=== PATIENT | male | born 1990 | race Caucasian/White ===

== ENCOUNTER 2021-07-19 13:34 | Emergency (ER) | payer OTHER, SELFPAY ==
--- NOTE | ~2021-07-19 | XR_ITS ---
XR chest 2V DATE: 07/19/2021 14:24 INDICATION: Chest pain TECHNIQUE: PA and lateral views COMPARISON: None FINDINGS: There is moderate bilateral hyperinflation. No pulmonary infiltrate or consolidation, pleur al effusion or pulmonary vascular congestion or pneumothorax is detected. No hilar or mediastinal enl argement. Normal heart size. Diffuse osteopenia. IMPRESSION: Moderate hyperinflation; no active pulmonary disease Osteopenia Reviewed, dictated and finalized at location A. TING DEPARTMENT SUPERVISOR
--- NOTE | 2021-07-19 13:39 | ECG_ITS ---
Measurements Intervals [place] Rate: 104 P: 53 OK: 166 QRS: 15 QRSD: 97 T: 62 QT: 330 QTc: 435 Interpretive Statements SINUS TACHYCARDIA INCOMPLETE RIGHT BUNDLE BRANCH BLOCK BASELINE ARTIFACT- II, III, V2-V3 BORDERLINE ECG Electronically Signed On 07-19-2021 16:12:15 SNOW BLOWER by Reji Baca D.O.
[2021-07-19 14:05] VITALS: BP 158/93; PULSE 93; RESP 16; TEMP 36.9; O2SAT 99
[2021-07-19 14:21] LABS: Basophils Absolute Auto 0.1 K/mm3 (0.0-0.1); Basophils Percent Auto 0.9 % (0.2-1.2); Eosinophils Absolute Auto 0.1 K/mm3 (0-0.3); Eosinophils Percent Auto 1.4 % (0-4.4); Hematocrit 42.8 % (42.0-52.0); Hemoglobin 15.4 g/dL (14.0-18.0); Immature Granulocyte Absolute 0.02 K/mm3 (0.00-0.031); Immature Granulocyte Percent A 0.3 % (0-0.5); Lymphocytes Absolute Auto 2.04 K/mm3 (0.9-3.2); Lymphocytes Percent Auto 34.9 % (18.3-44.2); Mean Corpuscular Hemoglobin 31.7 pg (26-34); Mean Corpuscular Volume 88.1 fl (80-100); Mean Platelet Volume 9.7 fl (7.4-10.4); Monocytes Absolute Auto 0.5 K/mm3 (0.1-0.6); Monocytes Percent Auto 7.7 % (2.6-8.5); Neutrophils Absolute Auto 3.2 K/mm3 (1.3-6.7); Neutrophils Percent Auto 54.8 % (45.5-73.1); Platelet Count Result 260 k/mm3 (150-375); Red Blood Count 4.86 M/mm3 (4.6-6.20); Red Cell Distribution Width 11.9 % (11.5-14.5); White Blood Count 5.8 K/mm3 (4.5-10.0)
[2021-07-19 14:32] LABS: Alanine Aminotransferase 62 U/L (4-50); Albumin Level 5.1 g/dL (3.5-5.1); Alkaline Phosphatase 67 U/L (38-126); Anion Gap 6 mmol/L (8-16); Aspartate Amino Transferase 38 U/L (17-59); Bilirubin,Total 0.9 mg/dL (0.2-1.3); Blood Urea Nitrogen 12 mg/dL (9-20); Carbon Dioxide 28 mmol/L (22-30); Chloride 104 mmol/L (98-107); Estimated CRCL calculation 89 ml/min; Estimated Glomerular Filt Rate > 60; Glucose 123 mg/dL (65-110); Lipase 96 U/L (23-300); Potassium 3.9 mmol/L (3.4-5.0); Sodium 138 mmol/L (137-145)
[2021-07-19 14:35] LABS: Prothrombin Time 13.3 Seconds (11.1-14.7)
[2021-07-19 14:43] LABS: Troponin I < 0.012 ng/mL (0.000-0.034)
--- NOTE | 2021-07-19 15:46 | ED.ARRPALP ---
HPI - Arrhythmia/Palpitations General Chief Complaint: Arrhythmia/Palpitations Stated Complaint: Heart palpitations Time Seen by Provider: 07/19/21 14:25 Source: patient and RN notes reviewed Mode of arrival: ambulatory Limitations: no limitations History of Present Illness HPI narrative: This is a 30 year old male with history of anxiety who presents for evaluation of anxiety. Patient states he was started on Buspirone and Seroquel 1 week ago for insomnia and anxiety. He presented to ER because he is having intermittent episodes of heart racing, palpitations , anxiousness. He reports his watch reports his heart rate is above 120 at times. He has intermittent chest pain. He reports constant anxiety attack for past 16 hours . He denies cough, nausea, vomiting, fever, chills. He drinks alcohol intermittently. He reports his symptoms were worse with drinking coffee a few days ago. Related Data Allergies Allergy/AdvReac Type Severity Reaction Status Date / Time No Known Allergies Allergy Verified 07/19/21 14:42 Review of Systems Review of Systems: All systems reviewed & are unremarkable except as noted in HPI and below PMFSH Past Medical History Medical History (Updated 07/19/21 @ 17:26 by Johanna Herrmann MD) Chronic insomnia GIOVANNY (generalized anxiety disorder) Surgical History Surgical History Hx of tonsillectomy Family History Family History Grandparent Diabetes mellitus Social History Social History (Updated 07/11/21 @ 09:35 by Ca Ramírez) Social History: Smoking status: Never smoker Second hand tobacco smoke exposure: No Alcohol intake: current Drinks per week: 3 Substance use: never Substance use type: does not use Gender identity (if verbalized by the patient): Male Sexual Orientation (if Verbalized by the Patient): Straight or Heterosexual Exam Const: General: no acute distress and alert Orientation/consciousness: patient oriented x3 Eyes: EOM: EOMs intact bilaterally Chest: Chest palpation & inspection: normal inspection of the chest Resp: Effort & Inspection: normal respiratory effort and no retractions Auscultation: clear to auscultation bilaterally Cardio: Rate: regular rate Rhythm: regular rhythm Heart sounds: no murmurs GI: GI Palp: Yes Soft to palpation, No Tenderness to palpation present (GI) and No Guarding due to palpation present (GI) Auscultation: normal bowel sounds Skin: General skin exam: normal color Rashes: no rashes Neuro: General: patient oriented x3, moves all extremities and CN's II-XI intact bilaterally Extrem: General: normal to inspection Psych: Mental Status: mental status grossly normal Affect: normal affect Course Reevaluation(s) Reevaluation #1: Patient states he feels better. Labs and xray are unremarkable. He seems to have worsening anxiety that could be related to his medication. Date: 07/19/21 Time: 17:23 Vital Signs Vital signs: Vital Signs Temperature 98.5 F 07/19/21 14:05 Pulse Rate 93 07/19/21 14:05 Respiratory Rate 16 07/19/21 14:05 Blood Pressure 158/93 H 07/19/21 14:05 Pulse Oximetry 99 07/19/21 14:05 Temperature 98.5 F 07/19/21 14:05 Pulse Rate 89 07/19/21 17:15 Respiratory Rate 16 07/19/21 17:15 Blood Pressure 139/78 07/19/21 17:01 Pulse Oximetry 96 07/19/21 17:15 MDM - Arrhythmia/Palpitations Lab Data Attestation: I reviewed the patient's lab results. Result diagrams: 07/19/21 14:12 07/19/21 14:12 Labs: Lab Results 07/19/21 07/19/21 07/19/21 Range/Units 14:12 14:12 14:12 WBC 5.8 (4.5-10.0) K/mm3 RBC 4.86 (4.6-6.20) M/mm3 Hgb 15.4 (14.0-18.0) g/dL Hct 42.8 (42.0-52.0) % MCV 88.1 (80-100) fl MCH 31.7 (26-34) pg MCHC 36.0 (32-36) g/dl RDW 11.9 (11.5-14
[2021-07-19] MEDS: LORazepam (*CRX) 0.5 MG TABLET PO (15:58)
[2021-07-19 16:20] LABS: Magnesium 1.8 mg/dL (1.6-2.3)
[2021-07-19 16:32] LABS: D Dimer 0.27 ug/mL (<0.48)
[2021-07-19 16:51] VITALS: PULSE 95; RESP 24; O2SAT 100
[2021-07-19 17:00] VITALS: PULSE 90; RESP 19; O2SAT 96
[2021-07-19 17:01] VITALS: BP 139/78; PULSE 92; RESP 17; O2SAT 97
[2021-07-19 17:07] LABS: Thyroid Stimulating Hormone Reflex 0.537 uIU/mL (0.465-4.68)
[2021-07-19 17:15] VITALS: PULSE 89; RESP 16; O2SAT 96
== END 2021-07-19 17:40 | disposition home or self-care (01) ==
PROVIDERS: Emergency Medicine; Emergency Provider General Practice; PCP Family Medicine
DX: R00.2 Palpitations (principal); F41.1 Generalized anxiety disorder; F51.04 Psychophysiologic insomnia; R07.9 Chest pain, unspecified
CPT/HCPCS: 36415; 71046; 80053; 83690; 83735; 84443; 84484; 85025; 85380; 85610; 85730; 93005; 99284; A9270

== ENCOUNTER 2021-12-06 16:04 | Emergency (ER) | payer OTHER, SELFPAY ==
[2021-12-06 16:10] VITALS: BP 132/84; PULSE 80; RESP 18; TEMP 36.6; O2SAT 100
[2021-12-06 16:11] VITALS: BP 132/84; PULSE 80; RESP 18; TEMP 36.6; O2SAT 100
--- NOTE | 2021-12-06 16:25 | ED.URI ---
HPI - URI/Sore Throat General Chief Complaint: Upper Respiratory Infection Stated Complaint: Sore Throat Time Seen by Provider: 12/06/21 16:26 History of Present Illness HPI Narrative: Ryley Johnson is a 31 yo male with a PMH of anxiety, depression, covid,comes to express care with a history of 2 weeks of sore throat that has gotten worse. He thought it was sinus drainage; rates pain as 7 out of 10. Has not taken any medication to treat these symptoms Related Data Allergies Allergy/AdvReac Type Severity Reaction Status Date / Time buspirone AdvReac Intermediate Anxiety Verified 12/06/21 16:10 quetiapine [From Seroquel] AdvReac Intermediate Agitated Verified 12/06/21 16:10 Review of Systems Review of Systems: CONSTITUTIONAL: Denies fever, chills, sweats. EYES: Denies visual changes, redness, discharge. ENT: Denies rhinorrhea, congestion, has sore throat, otalgia. CARDIOVASCULAR: Denies chest pain, palpitations, edema. RESPIRATORY: Denies dyspnea, wheezing, cough GASTROINTESTINAL: Denies abdominal pain, nausea, vomiting, diarrhea. GENITOURINARY: Denies dysuria, hematuria, abnormal discharge SKIN: Denies rash or itching. NEUROLOGIC: Denies numbness, or focal weakness. PSYCHIATRIC: Denies anxiety or depression. PMFSH Past Medical History Medical History Chronic insomnia GIOVANNY (generalized anxiety disorder) Surgical History Surgical History Hx of tonsillectomy Family History Family History Grandparent Diabetes mellitus Social History Social History Social History: Smoking status: Never smoker Second hand tobacco smoke exposure: No Alcohol intake: current Drinks per week: 3 Substance use: never Substance use type: does not use Gender identity (if verbalized by the patient): Male Sexual Orientation (if Verbalized by the Patient): Straight or Heterosexual Comments Nu my nurse note Exam Narrative: GENERAL: This is a well-nourished, well-developed patient, in mild distress. HEAD: normocephalic, atraumatic. EYES: Sclera clear/white. Vision is grossly intact. EARS: External ears normal, auditory canals red and without drainage,Some fluid behind TMs. Hearing grossly intact. NOSE: External nose normal without nasal discharge, nares without redness, no rhinorrhea. THROAT: Mucous membranes moist, posterior pharynx beefy erythema NECK: Neck supple, [id number] submandibular or posterior lymph node enlargement CARDIOVASCULAR: Regular rate and rhythm without murmurs, gallops, or rubs. RESPIRATORY: Clear to auscultation. Breath sounds equal bilaterally. No wheezes, rales, or rhonchi. GASTROINTESTINAL: Not done SKIN: warm, intact with no suspicious lesions or rash, good texture and turgor. NEURO: awake, alert, and oriented to person, place and time. There were no obvious focal neurologic abnormalities. Steady gait EXTREMITIES: Normal range of motion. BACK: Nontender without deformity Course Course Emergency Course: Male patient here with sore throat is been present for 2 weeks on and off is getting worse Strep test is negative Patient has not tried taking any medication for sore throats is started on Flonase Zyrtec and recommended getting some cepacol lozenges denies any coughing to that is aggravating the sore throat Level of Care: Express Care Visit Vital Signs Vital signs: Vital Signs Temperature 97.9 F 12/06/21 16:10 Pulse Rate 80 12/06/21 16:10 Respiratory Rate 18 12/06/21 16:10 Blood Pressure 132/84 12/06/21 16:10 Pulse Oximetry 100 12/06/21 16:10 Oxygen Delivery Room Air 12/06/21 16:10 Temperature 97.9 F 12/06/21 16:11 Pulse Rate 80 12/06/21 16:11 Respiratory Rate 18 12/06/21 16:11 Blood Pressure 132/84 12/06/21 16:11
== END 2021-12-06 16:42 | disposition home or self-care (01) ==
PROVIDERS: Emergency Provider Nurse Practitioner; PCP Family Medicine
DX: J02.9 Acute pharyngitis, unspecified (principal); F41.1 Generalized anxiety disorder
CPT/HCPCS: 87081; 87880; 99213; G0463

== ENCOUNTER 2024-04-05 16:08 | Emergency (ER) | payer BC, OTHER, SELFPAY ==
[2024-04-05 16:20] VITALS: BP 137/93; PULSE 110; RESP 16; TEMP 36.7; O2SAT 98
--- NOTE | 2024-04-05 16:42 | ED.URI ---
HPI - URI/Sore Throat General Chief Complaint: Upper Respiratory Infection Stated Complaint: flu like symptoms Time Seen by Provider: 04/05/24 16:34 Source: patient, RN notes reviewed and old records reviewed Mode of arrival: ambulatory Limitations: no limitations History of Present Illness HPI Narrative: 33-year-old male presents to [facility] with complaints of illness since Wednesday which includes cough, some shortness of breath, nasal congestion with fevers up to 103.8 F today. Patient states he has discomfort in his mid upper chest with coughing, denies any acute sharp pain or any pain in arm or jaw or any associated nausea. Patient reports that he has been taking Tylenol cold and flu and also Robitussin for his cough. Patient reports that he has generalized aching also MD elicited complaint: cough and sore throat Onset (ago): day(s) (3) Consistency: progressively worsening Pain scale (0-10): 8 Description of mucous: clear Able to tolerate fluids by mouth: Yes Treatments prior to arrival: other (Robitussin. Tylenol cold and flu) Related Data Home Medications Medication Instructions Recorded Confirmed clonazepam 0.5 mg tablet 1 mg PO DAILY 07/30/23 04/05/24 Allergies Allergy/AdvReac Type Severity Reaction Status Date / Time buspirone AdvReac Intermediate Anxiety Verified 04/05/24 16:32 quetiapine [From Seroquel] AdvReac Intermediate Agitated Verified 04/05/24 16:32 Review of Systems Review of Systems: CONSTITUTIONAL: Reports malaise, chills, sweats, or fever. EYES: Denies visual changes, redness, or discharge. ENT: Reports rhinorrhea, congestion, sinus pain,no otalgia and some sore throat. CARDIOVASCULAR: Denies chest pain, palpitations, or edema. RESPIRATORY: Reports cough.? Reports some dyspnea,pressure upper chest with cough GASTROINTESTINAL: Denies abdominal pain, nausea, vomiting, diarrhea SKIN: Denies rash or itching. MUSCULOSKELETAL: Reports myalgia. NEUROLOGIC: Denies headache. All systems reviewed & are unremarkable except as noted in HPI and below PMFSH Past Medical History Medical History Chronic insomnia GIOVANNY (generalized anxiety disorder) Surgical History Surgical History Hx of tonsillectomy Family History Family History Grandparent Diabetes mellitus Social History Social History Social History: Smoking status: Never smoker Second hand tobacco smoke exposure: No Alcohol intake: current Drinks per week: 3 Substance use: never Substance use type: does not use Living arrangements: with family Occupation/Education: occupation Gender identity (if verbalized by the patient): Male Sexual Orientation (if Verbalized by the Patient): Straight or Heterosexual Comments At time of signature, agree with nursing past medical, surgical, social and family history. There is no relevant family history pertinent to the presenting complaint Exam Narrative: GENERAL: Well-appearing, well-nourished, and in mild acute distress. HEAD: Normocephalic EYES: PERRLA, conjunctivae clear ENT: Nares clear, turbinates edematous and erythematous, clear discharge. Mucous membranes moist. TM pearly kim with dull light reflex bilaterally; no tragal tenderness. Oropharynx erythematous without lesions. Tonsils not present and throat without exudate, no drooling, no hoarseness, no trismus, uvula midline. post nasal drainage NECK: Supple. No lymphadenopathy CHEST: Clear to auscultation, breath sounds equal. No wheezing, rhonchi, rales, or stridor. No respiratory distress, speaks in full sentences.hacking cough noted with some upper chest discomfort with cough, SAO2 98% on room air HEART: Regular rate and rhythm. No murmur heard. SKIN: W
[2024-04-05 18:06] LABS: EDCOVIDSCREEN Negative (Negative)
[2024-04-05 18:07] LABS: EDINFLUASCREEN Negative (Negative); EDINFLUBSCREEN Negative (Negative)
== END 2024-04-05 17:12 | disposition home or self-care (01) ==
PROVIDERS: Emergency Provider Registered Nurse; PCP Family Medicine
DX: J06.9 Acute upper respiratory infection, unspecified (principal); R50.9 Fever, unspecified; R07.89 Other chest pain; Z20.822 Contact with and (suspected) exposure to COVID-19; F41.1 Generalized anxiety disorder
CPT/HCPCS: 87426; 87804; 99213; G0463

== ENCOUNTER 2024-04-12 10:13 | Outpatient (CLI) | payer BC, OTHER, SELFPAY ==
--- NOTE | ~2024-04-12 | XR_ITS ---
EXAMINATION: XR chest 2V 04/12/2024 10:31 INDICATION: Cough PROCEDURE: 2 view chest COMPARISON: 07/19/2019 FINDINGS: The lungs are clear. The cardiomediastinal silhouette is within normal limits. There are no pleural effusions. There is no pneumothorax suspected. IMPRESSION: 1: NO ACUTE CARDIOPULMONARY DISEASE. Reviewed, dictated and finalized at location B.
== END 2024-04-12 10:14 | disposition home or self-care (01) ==
PROVIDERS: PCP Family Medicine; Visit Provider Student in an Organized Health Care Education/Training Program
DX: R05.9 Cough, unspecified (principal)
CPT/HCPCS: 71046

== ENCOUNTER 2024-12-13 14:22 | Outpatient (CLI) | payer BC, OTHER, SELFPAY ==
--- NOTE | ~2024-12-13 | XR_ITS ---
3 VIEWS LUMBAR SPINE Ordering provider: Rowan Worley PA-C History: . M54.9 - Dorsalgia, unspecified . Comparison: None. FINDINGS: VERTEBRAL BODIES: No visible fracture or subluxation. DISK SPACES: Narrowing of the disc L3-4, L4-L5 and L5-S1. SOFT TISSUES: Normal. IMPRESSION: No acute osseous abnormality lumbar spine. Multilevel degenerative disc disease. Reviewed, dictated and finalized at location A.
== END 2024-12-13 14:23 | disposition home or self-care (01) ==
LOC: MICIMG 14:24
PROVIDERS: PCP Family Medicine; Visit Provider Student in an Organized Health Care Education/Training Program
DX: M51.369 Other intervertebral disc degeneration, lumbar region without mention of lumbar back pain or lower extremity pain (principal); Z13.220 Encounter for screening for lipoid disorders
CPT/HCPCS: 72100

== ENCOUNTER 2025-01-26 16:58 | Emergency (ER) | payer BC, SELFPAY ==
--- NOTE | ~2025-01-26 | XR_ITS ---
HISTORY: dog jumped onto back, back pain COMPARISON: 12/13/2024 TECHNIQUE: 2 view lumbar spine. FINDINGS: Lumbar vertebral bodies are normally aligned. There are 5 non-rib bearing lumbar vertebral bodies. Narrowing of the intervertebral disc spaces at the level of L3/L4, L4/L5 and L5-S1, unchanged from pr ior. Remaining disc spaces are well maintained. Vertebral body heights are maintained. There are no lytic or sclerotic lesions. Paraspinal soft tissues are unremarkable IMPRESSION: Redemonstration of multilevel degenerative disc disease, without acute fracture. Reviewed, dictated and finalized at location A. IMPRESSION: Redemonstration of multilevel degenerative disc disease, without acute fracture .
--- NOTE | 2025-01-26 17:06 | ED_ITS ---
HPI - Back Pain/Injury General Chief Complaint: Back Pain/Injury Stated Complaint: Kidney Pain Time Seen by Provider: 01/26/25 17:06 Source: patient Mode of arrival: ambulatory Limitations: no limitations History of Present Illness HPI Narrative: Abel is a 34-year-old male patient presenting to the clinic today with complaints of right sided low pain x1 day. He reports he was injured last night by his dog. States the dog jumped on his back. His dog is a new [place] that weighs 150 lb. Pain to the right lower lumbar spine. Pain with movement and to palpation. Rates pain currently a 8/10. Took ibuprofen today for pain. No blood in urine or urinary symptoms. Denies any saddle anesthesia or loss of bowel or bladder. Related Data Home Medications ?Medication ?Instructions ?Recorded ?Confirmed ?Last Taken ?Type clonazepam 0.5 mg tablet 1 mg PO DAILY 07/30/23 12/13/24 Unknown History Allergies Allergy/AdvReac Type Severity Reaction Status Date / Time buspirone AdvReac Intermediate Anxiety Verified 01/26/25 17:06 quetiapine (From Seroquel) AdvReac Intermediate Agitated Verified 01/26/25 17:06 Review of Systems Review of Systems: Pertinent positives per HPI. Patient denies any fever, chills, rash, headache, visual changes, dizziness, cough, runny nose, sore throat, shortness of breath, chest pain, palpitations, nausea, vomiting, diarrhea, constipation, abdominal pain, or any urinary issues. PMFSH Past Medical History Medical History GIOVANNY (generalized anxiety disorder) Shingles Chronic insomnia Surgical History Surgical History Hx of tonsillectomy Family History Family History Grandparent Diabetes mellitus Social History Social History Social History: Smoking status: Never smoker Second hand tobacco smoke exposure: No Alcohol intake: current Drinks per week: 3 Substance use: never Substance use type: does not use Do You Feel Safe in your Home?: Yes Lack of Transportation: No Lack of Food: Never True Current Housing: I Have Housing Concerned About Future Housing: No Difficulty Paying Gas/Electric Bills: No Difficulty Paying for Meds: No Currently Unemployed: No Education: Don't Know Difficulty w/ Childcare or Family Care: No Living arrangements: with family Occupation/Education: occupation Gender identity (if verbalized by the patient): Male Sexual Orientation (if Verbalized by the Patient): Straight or Heterosexual Comments At the time of my signature, I reviewed and agree with the nursing past medical, surgical, social, and family history. There is no relevant family history pertinent to the patient complaint. Exam Narrative: General: Well-developed, well nourished, in no apparent distress Head: Normocephalic, atraumatic. Cardio: Regular rate and rhythm, s1 and s2 normal, no murmur appreciated. Resp: Clear to auscultation bilaterally, no rhonchi, rales, wheezing or rubs. Musculoskeletal: No deformity, tender to palpation over the right side mid lower lumbar spine, grossly normal range of motion, muscle strength strong and equal in BLE. SLT negative, patellar reflexes 2/4 bilaterally, negative foot drop, normal gait and station Course Course Emergency Course: Portions of this record may have been created with voice recognition software. Level of Care: Express Care Visit Vital Signs Vital signs: Vital Signs Temperature 36.6 C 01/26/25 17:09 Pulse Rate 85 01/26/25 17:09 Respiratory Rate 16 01/26/25 17:09 Blood Pressure 145/97 H 01/26/25 17:09 Pulse Oximetry 99 01/26/25 17:09 Temperature 36.6 C 01/26/25 17:09 Pulse Rate 85 01/26/25 17:09 Respiratory Rate 16 01/26/25 17:09 Blood Pressure 145/97 H 01/26/25 17:09 Pulse Oximetry 99 01/26/25 17:09 Vital signs reviewed MDM - Back Pain/Injury MDM Narrative Medical decision making narrative: At the time of visit patient is resting comfortably on the exam table. Patient appears to be nontoxic. Complaints right sided low pain x1 day. He reports he was injured last night by his dog. States the dog jumped on his back. His dog is a new [place] that weighs 150 lb. Pain to the right lower lumbar spine. Pain with movement and to palpation. Rates pain currently a 8/10. Took ibuprofen today for pain. No blood in urine or urinary symptoms. Denies any saddle anesthesia or loss of bowel or bladder. X-ray lumbar spine was ordered. Diagnostics: X-ray of the lumbar spine performed. Shows degenerative disc disease. No acute fracture or malalignment. Labs: Urinalysis positive for trace of blood and trace of protein. Plan: I suspect patient has a low back contusion, degenerative disc disease, and acute back pain. Urinalysis shows trace of blood and trace of protein. Discussed observation-if his symptoms worsen he should go the emergency room. Will send in prescription for naproxen and a cyclobenzaprine. Supportive measures were discussed with the patient and they voiced understanding discharge instructions and agrees to treatment plan. Return precautions reviewed Differential Diagnosis Differential diagnosis: Likely lumbar radiculopathy, sciatica, strain of lumbar region, renal colic, pyelonephritis, thoracic back pain and other (Lumbar contusion, soft tissue, muscle strain) Lab Data Labs: Lab Results 01/26/25 Range/Units 18:22 POC Urine Color Yellow POC Urine Clarity Clear POC Urine pH 5.5 POC Ur Specif [place] 1.030 POC Urine Protein Trace (Negative) POC Ur Glucose (UA) Negative (Negative) POC Urine Ketones Negative (Negative) POC Urine Blood Trace (Negative) POC Urine Nitrite Negative (Negative) POC Urine Bilirubin Negative (Negative) POC Urine Urobilinogen 0.2 POC U Leukocyte Esteras Negative (Negative) Imaging Data Radiologist's impression: ITS Impressions Lumbar Spine X-Ray 01/26/25 17:58 IMPRESSION: Redemonstration of multilevel degenerative disc disease, without acute fracture. Discharge Plan Discharge Clinical Impression: Low back pain Qualifiers: Chronicity: acute Back pain laterality: right Sciatica presence: without sciatica Qualified Code(s): M54.50 - Low back pain, unspecified Contusion of lower back Qualifiers: Encounter type: initial encounter Qualified Code(s): S30.0XXA - Contusion of lower back and pelvis, initial encounter Degenerative disc disease Qualifiers: Spinal region: lumbar Disc-related pain type: unspecified whether pain present Qualified Code(s): M51.369 - Other intervertebral disc degeneration, lumbar region without mention of lumbar back pain or lower extremity pain Patient Disposition: Home Condition: Stable Instructions: Antibiotic Form, Acute Low Back Pain (ED), Lower Back Exercises (ED) Additional Instructions: X-rays negative for any acute fracture or malalignment of the low back Urine shows trace of blood trace of protein.-recommend follow-up with your PCP in 1 to 2 weeks for retesting Take any prescription medication only as prescribed-naproxen and Flexeril Be mindful of sedation precautions given to you if taking a muscle relaxer. May use heat or ice to the affected area Consider massage or chiropractor adjustment if this was discussed with provider May use blue emu, lidocaine patches, or asper cream to affected area- do not apply heat or ice directly over cream- can cause burn. Complete appropriate back stretching exercises. Follow up with your PCP in 3-5 days if symptom persist. Patient Language: Malay Prescriptions: New naproxen 500 mg tablet 500 mg PO BID PRN (Reason: pain) 7 Days Qty: 14 0RF cyclobenzaprine 10 mg tablet 10 mg PO Q8H PRN (Reason: muscle spasm) 7 Days Qty: 21 0RF No Action clonazepam 0.5 mg tablet 1 mg PO DAILY Follow-up/Referrals: PHYSICIAN,MILL ROLL OPERATOR [Primary Care Provider] - Time of Disposition: 18:08 Quality NIHSS Nursing Documentation ED NIHSS nursing documentation: reviewed/agree
[2025-01-26 17:09] VITALS: BP 145/97; PULSE 85; RESP 16; TEMP 36.6; O2SAT 99
[2025-01-26 18:24] LABS: EDUAAPPEAR Clear; EDUABILI Negative (Negative); EDUABLOOD Trace (Negative); EDUACOLOR1 Yellow; EDUAGLUCOSE Negative (Negative); EDUAKETONE Negative (Negative); EDUALEUKO Negative (Negative); EDUANITRATE Negative (Negative); EDUAPH 5.5; EDUAPROTEIN Trace (Negative); EDUASPGRAVITY 1.030; EDUAUROBILI 0.2
== END 2025-01-26 18:25 | disposition home or self-care (01) ==
PROVIDERS: Emergency Provider Nurse Practitioner Family
DX: M54.50 Low back pain, unspecified (principal); S30.0XXA Contusion of lower back and pelvis, initial encounter; W54.1XXA Struck by dog, initial encounter; M51.369 Other intervertebral disc degeneration, lumbar region without mention of lumbar back pain or lower extremity pain; F41.1 Generalized anxiety disorder
CPT/HCPCS: 72100; 81003; 99213; G0463